=== PATIENT | male | born 1985 | race Two or more races ===

== ENCOUNTER 2021-09-13 20:04 | Emergency (ER) | payer MEDICAID, OTHER ==
[~2021-09-13] VITALS: Ht 170.2 cm; Wt 90.7 kg
[2021-09-13 20:18] VITALS: BP 138/93
[2021-09-14] MEDS ORDERED: CEPH-322 PO (00:26)
[2021-09-14] MEDS ORDERED: IBUP800T27 PO (00:26)
== END 2021-09-14 01:02 | disposition home or self-care (01) ==
LOC: ER 20:06
DX: S01.112A Laceration without foreign body of left eyelid and periocular area, initial encounter (principal); W22.8XXA Striking against or struck by other objects, initial encounter; Y93.89 Activity, other specified; Y92.89 Other specified places as the place of occurrence of the external cause; Y99.8 Other external cause status
CPT/HCPCS: 12013